=== PATIENT | female | born 2000 | race Two or more races ===

== ENCOUNTER 2023-09-10 20:13 | Emergency (ER) | payer OTHER ==
[~2023-09-10] VITALS: Ht 162.6 cm; Wt 59.1 kg
[2023-09-10 21:09] LABS: APPEARANCE,URINE CLEAR (CLEAR); BILIRUBIN,URINE NEGATIVE (NEGATIVE); COLOR,URINE YELLOW (YELLOW); GLUCOSE, URINE (UA) NEGATIVE (NEGATIVE); KETONES,URINE NEGATIVE (NEGATIVE); LEUKOCYTE ESTERASE ,URINE TRACE (NEGATIVE); NITRATE,URINE NEGATIVE (NEGATIVE); OCCULT BLOOD,URINE NEGATIVE (NEGATIVE); PH,URINE 6.5 (5.0-8.0); PROTEIN,URINE TRACE mg/dL (NEGATIVE); SPECIFIC GRAVITIY, URINE 1.026 (1.003-1.030); UROBILINOGEN,URINE <=1.0 mg/dL (<=1.0)
[2023-09-10 21:16] LABS: BASOPHILS % (AUTO) 0.2 % (0.0-2.0); EOSINOPHILS % (AUTO) 0.3 % (1.0-6.0); HEMATOCRIT 38.5 % (36-46); HEMOGLOBIN 12.8 g/dL (12.0-16.0); LYMPHOCYTES # (AUTO) 1.9 K/uL (1.0-4.8); LYMPHOCYTES % (AUTO) 14.1 % (22.0-44.0); MEAN CORPUSCULAR HEMOGLOBIN 29.4 pg (26.0-34.0); MEAN CORPUSCULAR HGB CONC 33.3 G/dL (31.0-37.0); MEAN CORPUSCULAR VOLUME 88 fL (80-100); MONOCYTES # (AUTO) 0.5 K/uL (0.1-1.0); MONOCYTES % (AUTO) 3.5 % (2.0-9.0); NEUTROPHILS % (AUTO) 81.9 % (40.0-70.0); PLATELET COUNT (AUTO) 377 K/uL (150-450); RED BLOOD CELL COUNT(AUTO) 4.36 MIL/uL (4.00-5.20); RED CELL DISTRIBUTION WIDTH 13.2 % (11.5-14.5); WHITE BLOOD COUNT (AUTO) 13.4 K/uL (4.5-11.0)
[2023-09-10 21:24] LABS: BACTERIA,URINE Rare /HPF (None Seen); RBC,URINE None Seen /HPF (0-2); SQUAMOUS EPITHELIAL CELL,UR Few /LPF (None Seen)
[2023-09-10 21:33] LABS: ANION GAP 8 mmol/L (8-16); CARBON DIOXIDE 30 mmol/L (22-29); CHLORIDE 101 mmol/L (98-107); CREATININE 0.69 mg/dL (0.60-1.30); GLUCOSE,RANDOM 123 mg/dL (70-110); POTASSIUM 3.9 mmol/L (3.5-5.1); SODIUM SERUM 139 mmol/L (136-145); UREA NITROGEN, BLOOD 14 mg/dL (7-18)
[2023-09-10 21:34] LABS: CALCIUM, TOTAL 8.7 mg/dL (8.8-10.5); GLOMERULAR FILTR. RATE CALC > 60 mL/min (>60)
[2023-09-10 21:35] LABS: HCG,QUANTITATIVE < 1 mIU/mL (0-6); LIPASE 34 U/L (16-77)
[2023-09-11] MEDS ORDERED: SODIUM CHLORIDE 0.9% 100 ML ONE (00:35)
[2023-09-11] MEDS ORDERED: IOHEXOL 350 MG/ML 100 ML VIAL ONE (00:35)
[2023-09-11] MEDS: SODIUM CHLORIDE 0.9% 1,000 ML IV ONE (00:45)
[2023-09-11] MEDS: KETOROLAC TROMETHAMINE 30 MG/ML VIAL IVP ONE (00:46)
[2023-09-11] MEDS ORDERED: CefTRIAXone 1 GM/DEXTROSE 50 ML IV ONE (02:45)
[2023-09-11] MEDS: CefoTEtan DISOD 2 GM/DEXTROSE 50 ML IV ONE (03:00)
[2023-09-11] MEDS: DOXYCYCLINE HYCLATE 100 MG in DEXTROSE 5%-WATER 100 ML IV ONE (03:01)
[2023-09-11 06:00] VITALS: BP 106/64; PULSE 88; RESP 16; TEMP 98.1
== END 2023-09-11 10:20 | disposition short-term general hospital (02) ==
LOC: EMS 20:13
DX: N70.93 Salpingitis and oophoritis, unspecified (principal)
CPT/HCPCS: 99291; 80048; 81001; 83690; 84702; 85025; 87210; 36415; 87070; 87491; 87591; 74177; 96365; 76856; 96361; 96375; 96368; J3490 ×2; J1885; Q9967; J7060; J7030; J7050

== ENCOUNTER 2024-10-19 16:54 | Emergency (ER) | payer OTHER ==
[~2024-10-19] VITALS: Ht 162.6 cm; Wt 63.6 kg
[2024-10-19 17:02] VITALS: BP 113/73; PULSE 110; RESP 20; TEMP 98.1; O2SAT 98
[2024-10-19] MEDS ORDERED: IBUP-1554 PO (18:07)
[2024-10-19] MEDS ORDERED: ACET-66 PO (18:07)
== END 2024-10-19 18:29 | disposition home or self-care (01) ==
LOC: EMS 17:25
DX: S56.919A Strain of unspecified muscles, fascia and tendons at forearm level, unspecified arm, initial encounter (principal); S80.11XA Contusion of right lower leg, initial encounter; X58.XXXA Exposure to other specified factors, initial encounter; Y93.89 Activity, other specified; Y92.89 Other specified places as the place of occurrence of the external cause; Y99.8 Other external cause status
CPT/HCPCS: 99282; Z7502